=== PATIENT | female | born 1985 | race Caucasian/White ===

== ENCOUNTER → 2017-03-01 | Outpatient (CLI) | payer OTHER ==
--- NOTE | 2017-03-01 11:11 | KCIC ---
Three-view left knee dated 03/01/2017. No comparison available. Clinical indication: Chronic knee pain and weakness. Findings: 3 views left knee show normal bony alignment. No displaced fracture. No acute osseous or articular abnormality. No joint effusion or loose body. IMPRESSION: No acute findings. Electronically signed by: David Livingston MD (03/01/2017 11:08 AM) [id number]
== END | disposition home or self-care (01) ==
LOC: KCIC 10:35
PROVIDERS: ATTEND Family Medicine
DX: G89.29 Other chronic pain (principal); M25.562 Pain in left knee; M25.362 Other instability, left knee; R53.1 Weakness
CPT/HCPCS: 73562